=== PATIENT | male | born 1995 | race Caucasian/White ===

== ENCOUNTER 2017-08-08 19:05 | Emergency (ER) | payer OTHER ==
[~2017-08-08] VITALS: Ht 160 cm; Wt 37.7 kg
[2017-08-08 19:42] LABS: BASOPHILS # (AUTO) 0.04 K/uL (0.00-0.20); BASOPHILS % (AUTO) 0.5 % (0.0-2.0); EOSINOPHILS # (AUTO) 0.15 K/uL (0.00-0.70); EOSINOPHILS % (AUTO) 1.92 % (1.0-6.0); HEMATOCRIT 49.8 % (41-53); HEMOGLOBIN 16.5 g/dL (13.5-17.5); LYMPHOCYTES # (AUTO) 3.4 K/uL (1.0-4.8); LYMPHOCYTES % (AUTO) 44.3 % (22.0-44.0); MEAN CORPUSCULAR HEMOGLOBIN 30.8 pg (26.0-34.0); MEAN CORPUSCULAR HGB CONC 33.1 G/dL (31.0-37.0); MEAN CORPUSCULAR VOLUME 93 fL (80-100); MONOCYTES # (AUTO) 0.5 K/uL (0.1-1.0); MONOCYTES % (AUTO) 6.2 % (2.0-9.0); NEUTROPHILS # (AUTO) 3.6 K/uL (1.8-7.7); NEUTROPHILS % (AUTO) 47.1 % (40.0-70.0); PLATELET COUNT (AUTO) 248 K/uL (150-450); RED BLOOD CELL COUNT(AUTO) 5.35 MIL/uL (4.50-5.90); RED CELL DISTRIBUTION WIDTH 13.2 % (11.5-14.5); WHITE BLOOD COUNT (AUTO) 7.7 K/uL (4.5-11.0)
[2017-08-08 19:46] LABS: ANION GAP 9 mmol/L (8-16); CALCIUM, TOTAL 9.4 mg/dL (8.8-10.5); CARBON DIOXIDE 29 mmol/L (22-29); CHLORIDE 102 mmol/L (98-107); CREATININE 0.77 mg/dL (0.60-1.30); GLOMERULAR FILTR. RATE CALC > 60 mL/min (>60); SODIUM SERUM 140 mmol/L (136-145); UREA NITROGEN, BLOOD 11 mg/dL (7-18)
[2017-08-08 19:53] LABS: ALANINE AMINOTRANSFERASE 23 U/L (12-78); ALBUMIN 4.4 g/dL (3.4-5.0); ASPARTATE AMINOTRANSFERASE 16 U/L (15-37); BILIRUBIN,TOTAL 0.3 mg/dL (0.1-1.0); TOTAL PROTEIN, SERUM 7.4 g/dL (6.4-8.2)
[2017-08-08 22:20] VITALS: BP 121/70
== END 2017-08-08 22:34 | disposition home or self-care (01) ==
LOC: EMS 19:07
DX: F41.0 Panic disorder [episodic paroxysmal anxiety] (principal); F32.9 Major depressive disorder, single episode, unspecified
CPT/HCPCS: 99284

== ENCOUNTER 2017-08-09 09:02 | Inpatient (IN) | payer MEDICAID, OTHER ==
[~2017-08-09] VITALS: Ht 162.6 cm; Wt 35.4 kg
[2017-08-09 09:51] LABS: BASOPHILS # (AUTO) 0.04 K/uL (0.00-0.20); BASOPHILS % (AUTO) 0.7 % (0.0-2.0); EOSINOPHILS # (AUTO) 0.12 K/uL (0.00-0.70); EOSINOPHILS % (AUTO) 2.19 % (1.0-6.0); HEMATOCRIT 48.5 % (41-53); HEMOGLOBIN 16.6 g/dL (13.5-17.5); LYMPHOCYTES # (AUTO) 2.5 K/uL (1.0-4.8); LYMPHOCYTES % (AUTO) 47.9 % (22.0-44.0); MEAN CORPUSCULAR HEMOGLOBIN 31.2 pg (26.0-34.0); MEAN CORPUSCULAR HGB CONC 34.2 G/dL (31.0-37.0); MEAN CORPUSCULAR VOLUME 91 fL (80-100); MONOCYTES # (AUTO) 0.3 K/uL (0.1-1.0); MONOCYTES % (AUTO) 6.4 % (2.0-9.0); NEUTROPHILS # (AUTO) 2.3 K/uL (1.8-7.7); NEUTROPHILS % (AUTO) 42.8 % (40.0-70.0); PLATELET COUNT (AUTO) 241 K/uL (150-450); RED CELL DISTRIBUTION WIDTH 12.9 % (11.5-14.5); WHITE BLOOD COUNT (AUTO) 5.3 K/uL (4.5-11.0)
[2017-08-09 09:57] LABS: ANION GAP 8 mmol/L (8-16); CALCIUM, TOTAL 9.2 mg/dL (8.8-10.5); CARBON DIOXIDE 29 mmol/L (22-29); CHLORIDE 101 mmol/L (98-107); CREATININE 0.79 mg/dL (0.60-1.30); GLOMERULAR FILTR. RATE CALC > 60 mL/min (>60); SODIUM SERUM 138 mmol/L (136-145); UREA NITROGEN, BLOOD 12 mg/dL (7-18)
[2017-08-09 10:02] LABS: ALANINE AMINOTRANSFERASE 22 U/L (12-78); ALBUMIN 4.4 g/dL (3.4-5.0); ASPARTATE AMINOTRANSFERASE 18 U/L (15-37); BILIRUBIN,TOTAL 0.6 mg/dL (0.1-1.0); TOTAL PROTEIN, SERUM 7.6 g/dL (6.4-8.2)
[2017-08-09] MEDS ORDERED: ACETAMINOPHEN 325 MG TABLET PO ONE (12:00)
[2017-08-09] MEDS ORDERED: HALOPERIDOL 5 MG TABLET PO PRN (12:45)
[2017-08-09] MEDS ORDERED: LORazepam 2 MG TABLET PO PRN (12:45)
[2017-08-09] MEDS ORDERED: ZOLPIDEM TARTRATE 10 MG TABLET PO PRN (12:45)
[2017-08-09 14:00] VITALS: BP 117/62
[2017-08-09 16:00] VITALS: BP 124/86
[2017-08-09] MEDS ORDERED: MIRTAZAPINE 15 MG TABLET PO SCH (21:00)
[2017-08-10 07:28] VITALS: BP 103/66
[2017-08-10 07:35] LABS: CHOL/HDL RATIO 3.5 (4.2-7.3)
[2017-08-10 09:11] VITALS: BP 100/47
[2017-08-10 12:07] VITALS: BP 109/68
[2017-08-10 16:00] VITALS: BP 102/64
[2017-08-10] MEDS ORDERED: MIRTAZAPINE 15 MG TABLET PO SCH (21:00)
[2017-08-11 06:35] VITALS: BP 101/62
[2017-08-11 10:23] VITALS: BP 100/59
[2017-08-11 16:22] VITALS: BP 113/65
[2017-08-11] MEDS: MIRTAZAPINE 15 MG TABLET PO SCH ×2 (20:36→21:00)
[2017-08-12 07:16] VITALS: BP 105/62
[2017-08-12 08:58] VITALS: BP 121/78
[2017-08-12] MEDS ORDERED: MIRT15 PO (13:29)
== END 2017-08-12 14:15 | disposition home or self-care (01) | DRG 751 ==
LOC: EMS 09:05 → B2S 12:12
PROVIDERS: ADMIT Psychiatry & Neurology Psychiatry; ATTEND Psychiatry & Neurology Psychiatry
DX: F33.2 Major depressive disorder, recurrent severe without psychotic features (principal); I95.9 Hypotension, unspecified; R45.851 Suicidal ideations; F41.9 Anxiety disorder, unspecified
CPT/HCPCS: 99285; G0480

== ENCOUNTER 2023-06-26 12:19 | Emergency (ER) | payer MEDICAID, OTHER ==
[~2023-06-26] VITALS: Ht 157.5 cm; Wt 54.5 kg
[~2023-06-26 12:19] MED LIST: MIRT-89 PO
[2023-06-26 12:23] VITALS: BP 114/64; PULSE 110; RESP 18; TEMP 98.5
[2023-06-26] MEDS ORDERED: OLAN5TAB52 PO (12:23)
[2023-06-26 13:27] LABS: BASOPHILS % (AUTO) 0.9 % (0.0-2.0); EOSINOPHILS % (AUTO) 1.3 % (1.0-6.0); HEMATOCRIT 48.1 % (41-53); HEMOGLOBIN 16.6 g/dL (13.5-17.5); LYMPHOCYTES # (AUTO) 2.7 K/uL (1.0-4.8); LYMPHOCYTES % (AUTO) 43.1 % (22.0-44.0); MEAN CORPUSCULAR HEMOGLOBIN 32.5 pg (26.0-34.0); MEAN CORPUSCULAR HGB CONC 34.4 G/dL (31.0-37.0); MEAN CORPUSCULAR VOLUME 95 fL (80-100); MONOCYTES # (AUTO) 0.5 K/uL (0.1-1.0); MONOCYTES % (AUTO) 7.3 % (2.0-9.0); NEUTROPHILS # (AUTO) 2.9 K/uL (1.8-7.7); NEUTROPHILS % (AUTO) 47.4 % (40.0-70.0); PLATELET COUNT (AUTO) 204 K/uL (150-450); RED BLOOD CELL COUNT(AUTO) 5.09 MIL/uL (4.50-5.90); RED CELL DISTRIBUTION WIDTH 12.7 % (11.5-14.5); WHITE BLOOD COUNT (AUTO) 6.2 K/uL (4.5-11.0)
[2023-06-26] MEDS ORDERED: LORazepam 1 MG TABLET PO ONE (13:30)
[2023-06-26 13:36] LABS: ANION GAP 8 mmol/L (8-16); CALCIUM, TOTAL 9.2 mg/dL (8.8-10.5); CARBON DIOXIDE 29 mmol/L (22-29); CHLORIDE 103 mmol/L (98-107); CREATININE 0.93 mg/dL (0.60-1.30); GLOMERULAR FILTR. RATE CALC > 60 mL/min (>60); GLUCOSE,RANDOM 84 mg/dL (70-110); POTASSIUM 3.5 mmol/L (3.5-5.1); SODIUM SERUM 140 mmol/L (136-145); UREA NITROGEN, BLOOD 15 mg/dL (7-18)
[2023-06-26 13:46] LABS: ALANINE AMINOTRANSFERASE 48 U/L (12-78); ALBUMIN 4.4 g/dL (3.4-5.0); ALCOHOL, BLOOD (SERUM) < 3 mg/dL (0-10); ALKALINE PHOSPHATASE 77 U/L (46-116); ASPARTATE AMINOTRANSFERASE 26 U/L (15-37); BILIRUBIN,TOTAL 0.9 mg/dL (0.1-1.0); TOTAL PROTEIN, SERUM 7.4 g/dL (6.4-8.2)
== END 2023-06-26 16:22 | disposition home or self-care (01) ==
LOC: EMS 12:23
DX: F41.9 Anxiety disorder, unspecified (principal); F32.A Depression, unspecified
CPT/HCPCS: 99283; 80053; 85025; 36415; G0480

== ENCOUNTER 2023-07-05 22:43 | Emergency (ER) | payer OTHER ==
[~2023-07-05] VITALS: Ht 157.5 cm; Wt 36.4 kg
[~2023-07-05 22:43] MED LIST changes: -MIRT-89 PO; +OLAN5TAB52 PO
[2023-07-05 23:48] LABS: BASOPHILS % (AUTO) 0.7 % (0.0-2.0); EOSINOPHILS % (AUTO) 0.9 % (1.0-6.0); HEMATOCRIT 41.6 % (41-53); HEMOGLOBIN 14.4 g/dL (13.5-17.5); LYMPHOCYTES # (AUTO) 2.1 K/uL (1.0-4.8); LYMPHOCYTES % (AUTO) 28.7 % (22.0-44.0); MEAN CORPUSCULAR HEMOGLOBIN 32.6 pg (26.0-34.0); MEAN CORPUSCULAR HGB CONC 34.6 G/dL (31.0-37.0); MEAN CORPUSCULAR VOLUME 94 fL (80-100); MONOCYTES # (AUTO) 0.5 K/uL (0.1-1.0); MONOCYTES % (AUTO) 7.2 % (2.0-9.0); NEUTROPHILS # (AUTO) 4.7 K/uL (1.8-7.7); NEUTROPHILS % (AUTO) 62.5 % (40.0-70.0); PLATELET COUNT (AUTO) 214 K/uL (150-450); RED BLOOD CELL COUNT(AUTO) 4.43 MIL/uL (4.50-5.90); RED CELL DISTRIBUTION WIDTH 12.3 % (11.5-14.5); WHITE BLOOD COUNT (AUTO) 7.5 K/uL (4.5-11.0)
[2023-07-06 00:06] LABS: ANION GAP 6 mmol/L (8-16); CALCIUM, TOTAL 8.5 mg/dL (8.8-10.5); CARBON DIOXIDE 29 mmol/L (22-29); CHLORIDE 106 mmol/L (98-107); CREATININE 0.79 mg/dL (0.60-1.30); GLOMERULAR FILTR. RATE CALC > 60 mL/min (>60); GLUCOSE,RANDOM 107 mg/dL (70-110); POTASSIUM 3.6 mmol/L (3.5-5.1); SODIUM SERUM 140 mmol/L (136-145); UREA NITROGEN, BLOOD 13 mg/dL (7-18)
[2023-07-06 00:11] LABS: ALANINE AMINOTRANSFERASE 40 U/L (12-78); ALBUMIN 3.5 g/dL (3.4-5.0); ALKALINE PHOSPHATASE 91 U/L (46-116); ASPARTATE AMINOTRANSFERASE 24 U/L (15-37); BILIRUBIN,TOTAL 0.2 mg/dL (0.1-1.0); TOTAL PROTEIN, SERUM 6.3 g/dL (6.4-8.2)
[2023-07-06 00:14] LABS: ALCOHOL, BLOOD (SERUM) < 3 mg/dL (0-10)
[2023-07-06 00:49] VITALS: TEMP 98.1
[2023-07-06] MEDS ORDERED: LORazepam 2 MG TABLET PO ONE (02:00)
[2023-07-06] MEDS ORDERED: OLANZapine 5 MG TABLET PO ONE (02:00)
[2023-07-06] MEDS ORDERED: ACETAMINOPHEN 325 MG TABLET PO PRN (02:45)
[2023-07-06 05:46] VITALS: BP 90/50; PULSE 65; RESP 16
[2023-07-06 06:14] LABS: COVID AG,FIA SOURCE NASAL SWAB
[2023-07-06 06:43] LABS: SARS-COV2 (COVID) ANTIGEN,FIA Negative (Negative)
[2023-07-06] MEDS ORDERED: HYDR-4808 PO (10:08)
== END 2023-07-06 10:42 | disposition home or self-care (01) ==
LOC: EMS 22:43
DX: F32.9 Major depressive disorder, single episode, unspecified (principal); F32.A Depression, unspecified; Z20.822 Contact with and (suspected) exposure to COVID-19
CPT/HCPCS: 99284; 87426; 80053; 85025; G0480

== ENCOUNTER 2023-07-30 20:02 | Emergency (ER) | payer OTHER ==
[~2023-07-30] VITALS: Ht 160 cm; Wt 37.7 kg
[~2023-07-30 20:02] MED LIST changes: +HYDR-4808 PO
[2023-07-30 20:37] VITALS: TEMP 98.5
[2023-07-30 21:58] LABS: BASOPHILS % (AUTO) 0.6 % (0.0-2.0); EOSINOPHILS % (AUTO) 0.4 % (1.0-6.0); HEMATOCRIT 43.5 % (41-53); HEMOGLOBIN 15.3 g/dL (13.5-17.5); LYMPHOCYTES # (AUTO) 2.4 K/uL (1.0-4.8); LYMPHOCYTES % (AUTO) 32.9 % (22.0-44.0); MEAN CORPUSCULAR HEMOGLOBIN 32.9 pg (26.0-34.0); MEAN CORPUSCULAR HGB CONC 35.2 G/dL (31.0-37.0); MEAN CORPUSCULAR VOLUME 93 fL (80-100); MONOCYTES # (AUTO) 0.4 K/uL (0.1-1.0); MONOCYTES % (AUTO) 5.9 % (2.0-9.0); NEUTROPHILS # (AUTO) 4.5 K/uL (1.8-7.7); NEUTROPHILS % (AUTO) 60.2 % (40.0-70.0); PLATELET COUNT (AUTO) 215 K/uL (150-450); RED BLOOD CELL COUNT(AUTO) 4.66 MIL/uL (4.50-5.90); RED CELL DISTRIBUTION WIDTH 12.6 % (11.5-14.5); WHITE BLOOD COUNT (AUTO) 7.4 K/uL (4.5-11.0)
[2023-07-30 22:06] LABS: ANION GAP 11 mmol/L (8-16); CALCIUM, TOTAL 9.2 mg/dL (8.8-10.5); CARBON DIOXIDE 25 mmol/L (22-29); CHLORIDE 103 mmol/L (98-107); CREATININE 0.77 mg/dL (0.60-1.30); GLOMERULAR FILTR. RATE CALC > 60 mL/min (>60); GLUCOSE,RANDOM 104 mg/dL (70-110); POTASSIUM 3.7 mmol/L (3.5-5.1); SODIUM SERUM 139 mmol/L (136-145); UREA NITROGEN, BLOOD 11 mg/dL (7-18)
[2023-07-30 22:12] LABS: ALANINE AMINOTRANSFERASE 61 U/L (12-78); ALBUMIN 4.3 g/dL (3.4-5.0); ALKALINE PHOSPHATASE 82 U/L (46-116); ASPARTATE AMINOTRANSFERASE 24 U/L (15-37); BILIRUBIN,TOTAL 0.5 mg/dL (0.1-1.0); TOTAL PROTEIN, SERUM 7.3 g/dL (6.4-8.2)
[2023-07-30 22:23] LABS: ALCOHOL, BLOOD (SERUM) < 3 mg/dL (0-10)
[2023-07-30 22:36] LABS: PH,URINE DRUG SCREEN 6.5 (5.0-8.0)
[2023-07-30 22:42] LABS: ALCOHOL, URINE DRUG SCREEN NEGATIVE (NEGATIVE); AMPHET/METH SCREEN,URINE NEGATIVE (NEGATIVE); BARBITURATE SCREEN, URINE NEGATIVE (NEGATIVE); BENZODIAZEPINES SCREEN,URINE NEGATIVE (NEGATIVE); CANNABINOID SCREEN,URINE NEGATIVE (NEGATIVE); COCAINE SCREEN,URINE NEGATIVE (NEGATIVE); METHADONE SCREEN, URINE NEGATIVE (NEGATIVE); OPIATE SCREEN,URINE NEGATIVE (NEGATIVE); PHENCYCLIDINE SCREEN,URINE NEGATIVE (NEGATIVE)
[2023-07-30] MEDS ORDERED: LORazepam 1 MG TABLET PO ONE (23:00)
[2023-07-30 23:14] VITALS: BP 122/83; PULSE 94; RESP 16
== END 2023-07-30 23:16 | disposition home or self-care (01) ==
LOC: EMS 20:02
DX: F41.9 Anxiety disorder, unspecified (principal); F32.A Depression, unspecified
CPT/HCPCS: 99283; 80053; 85025; 80307; G0480

== ENCOUNTER 2023-12-28 23:23 | Emergency (ER) | payer OTHER ==
[~2023-12-28] VITALS: Ht 160 cm; Wt 40.9 kg
[2023-12-29] MEDS: LORazepam 2 MG/ML VIAL IM ONE (01:00)
[2023-12-29] MEDS: OLANZapine 10 MG TABLET PO ONE (01:00)
[2023-12-29] MEDS ORDERED: LORA-1000 PO (01:26)
[2023-12-29] MEDS ORDERED: OLAN10TA22 PO (01:27)
[2023-12-29 01:30] VITALS: BP 124/66; PULSE 86; RESP 16; TEMP 97.3
== END 2023-12-29 02:13 | disposition home or self-care (01) ==
LOC: EMS 23:25
DX: F41.9 Anxiety disorder, unspecified (principal); F32.9 Major depressive disorder, single episode, unspecified; G47.00 Insomnia, unspecified
CPT/HCPCS: 99283; 96372; J2060

== ENCOUNTER 2024-02-01 19:19 | Inpatient (IN) | payer MEDICAID, OTHER ==
[~2024-02-01] VITALS: Ht 160 cm; Wt 40.4 kg
[~2024-02-01 19:19] MED LIST changes: +LORA-1000 PO; +OLAN10TA22 PO
[2024-02-01 21:08] LABS: BASOPHILS % (AUTO) 0.1 % (0.0-2.0); EOSINOPHILS % (AUTO) 0 % (1.0-6.0); HEMATOCRIT 46.7 % (41-53); HEMOGLOBIN 15.7 g/dL (13.5-17.5); LYMPHOCYTES # (AUTO) 1.5 K/uL (1.0-4.8); LYMPHOCYTES % (AUTO) 12.3 % (22.0-44.0); MEAN CORPUSCULAR HEMOGLOBIN 31.6 pg (26.0-34.0); MEAN CORPUSCULAR HGB CONC 33.6 G/dL (31.0-37.0); MEAN CORPUSCULAR VOLUME 94 fL (80-100); MONOCYTES # (AUTO) 0.6 K/uL (0.1-1.0); MONOCYTES % (AUTO) 4.7 % (2.0-9.0); NEUTROPHILS # (AUTO) 10.2 K/uL (1.8-7.7); NEUTROPHILS % (AUTO) 82.9 % (40.0-70.0); PLATELET COUNT (AUTO) 251 K/uL (150-450); RED BLOOD CELL COUNT(AUTO) 4.96 MIL/uL (4.50-5.90); RED CELL DISTRIBUTION WIDTH 12.7 % (11.5-14.5); WHITE BLOOD COUNT (AUTO) 12.3 K/uL (4.5-11.0)
[2024-02-01 21:12] LABS: ALCOHOL, URINE DRUG SCREEN NEGATIVE (NEGATIVE); AMPHET/METH SCREEN,URINE NEGATIVE (NEGATIVE); BARBITURATE SCREEN, URINE NEGATIVE (NEGATIVE); BENZODIAZEPINES SCREEN,URINE NEGATIVE (NEGATIVE); CANNABINOID SCREEN,URINE NEGATIVE (NEGATIVE); COCAINE SCREEN,URINE NEGATIVE (NEGATIVE); METHADONE SCREEN, URINE NEGATIVE (NEGATIVE); OPIATE SCREEN,URINE NEGATIVE (NEGATIVE); PHENCYCLIDINE SCREEN,URINE NEGATIVE (NEGATIVE)
[2024-02-01 21:16] LABS: ANION GAP 16 mmol/L (8-16); CALCIUM, TOTAL 9.6 mg/dL (8.8-10.5); CARBON DIOXIDE 24 mmol/L (22-29); CHLORIDE 102 mmol/L (98-107); CREATININE 0.87 mg/dL (0.60-1.30); GLOMERULAR FILTR. RATE CALC > 60 mL/min (>60); GLUCOSE,RANDOM 101 mg/dL (70-110); POTASSIUM 3.6 mmol/L (3.5-5.1); SODIUM SERUM 142 mmol/L (136-145); UREA NITROGEN, BLOOD 13 mg/dL (7-18)
[2024-02-01 21:20] LABS: PH,URINE DRUG SCREEN 5.5 (5.0-8.0)
[2024-02-01 21:22] LABS: ALANINE AMINOTRANSFERASE 24 U/L (12-78); ALBUMIN 4.7 g/dL (3.4-5.0); ALKALINE PHOSPHATASE 96 U/L (46-116); ASPARTATE AMINOTRANSFERASE 17 U/L (15-37); BILIRUBIN,TOTAL 0.5 mg/dL (0.1-1.0); TOTAL PROTEIN, SERUM 7.9 g/dL (6.4-8.2)
[2024-02-01 21:27] LABS: ALCOHOL, BLOOD (SERUM) < 3 mg/dL (0-10)
[2024-02-01] MEDS: SODIUM CHLORIDE 0.9% 1,000 ML IV ONE (22:21)
[2024-02-01] MEDS: LORazepam 2 MG/ML VIAL IVP ONE (22:23)
[2024-02-02 03:31] LABS: COVID AG,FIA SOURCE NPH
[2024-02-02 03:50] LABS: SARS-COV2 (COVID) ANTIGEN,FIA Negative (Negative)
[2024-02-02] MEDS ORDERED: HALOPERIDOL 5 MG TABLET PO PRN (09:45)
[2024-02-02] MEDS ORDERED: ZOLPIDEM TARTRATE 10 MG TABLET PO PRN (09:45)
[2024-02-02 11:40] VITALS: BP 116/79; PULSE 113; RESP 18; TEMP 98.5; O2SAT 95
[2024-02-02] MEDS ORDERED: HydrOXYzine PAMOATE 25 MG CAPSULE PO PRN (18:15)
[2024-02-02] MEDS: LORazepam 2 MG TABLET PO PRN (19:17)
[2024-02-02] MEDS ORDERED: OLANZapine 10 MG TABLET PO SCH (21:00)
[2024-02-02] MEDS: OLANZapine 10 MG RAPDIS TABLET PO SCH (21:19)
[2024-02-02 21:55] VITALS: RESP 18
[2024-02-03] MEDS ORDERED: GuaiFENesin/D-METHORPHAN [SUGAR-FREE] 200-20MG/10 ML SYRUP UDCUP PO PRN (07:15)
[2024-02-03] MEDS ORDERED: NICOTINE 14 MG/24 HOUR PATCH TD PRN (07:15)
[2024-02-03] MEDS ORDERED: ALBUTEROL SULFATE HFA 90 MCG/PUFF 8 GM INHALER IH PRN (07:15)
[2024-02-03] MEDS ORDERED: DOCUSATE SODIUM 100 MG CAPSULE PO PRN (07:15)
[2024-02-03] MEDS ORDERED: IBUPROFEN 400 MG TABLET PO PRN (07:15)
[2024-02-03] MEDS ORDERED: ACETAMINOPHEN 325 MG TABLET PO PRN (07:15)
[2024-02-03] MEDS ORDERED: CloNIDine HCL 0.1 MG TABLET PO PRN (07:15)
[2024-02-03] MEDS ORDERED: MAG HYDROX/ALUMINUM HYD/SIMETH ES 30 ML SUSPENSION UDCUP PO PRN (07:15)
[2024-02-03] MEDS ORDERED: MAGNESIUM HYDROXIDE SUSPENSION 30 ML UDCUP PO PRN (07:15)
[2024-02-03] MEDS ORDERED: LOPERAMIDE HCL 2 MG CAPSULE PO PRN (07:15)
[2024-02-03] MEDS ORDERED: PETROLATUM,WHITE 28 GM JELLY TP PRN (07:15)
[2024-02-03] MEDS ORDERED: ONDANSETRON HCL 4 MG TABLET PO PRN (07:15)
[2024-02-03 07:32] LABS: BASOPHILS % (AUTO) 0.1 % (0.0-2.0); EOSINOPHILS % (AUTO) 0 % (1.0-6.0); HEMATOCRIT 43.4 % (41-53); HEMOGLOBIN 14.9 g/dL (13.5-17.5); LYMPHOCYTES # (AUTO) 2.9 K/uL (1.0-4.8); LYMPHOCYTES % (AUTO) 40.5 % (22.0-44.0); MEAN CORPUSCULAR HEMOGLOBIN 31.9 pg (26.0-34.0); MEAN CORPUSCULAR HGB CONC 34.3 G/dL (31.0-37.0); MEAN CORPUSCULAR VOLUME 93 fL (80-100); MONOCYTES # (AUTO) 0.6 K/uL (0.1-1.0); NEUTROPHILS # (AUTO) 3.7 K/uL (1.8-7.7); NEUTROPHILS % (AUTO) 51.4 % (40.0-70.0); PLATELET COUNT (AUTO) 236 K/uL (150-450); RED BLOOD CELL COUNT(AUTO) 4.67 MIL/uL (4.50-5.90); RED CELL DISTRIBUTION WIDTH 12.4 % (11.5-14.5); WHITE BLOOD COUNT (AUTO) 7.2 K/uL (4.5-11.0)
[2024-02-03] MEDS: OLANZapine 5 MG TABLET PO SCH (08:48)
[2024-02-03 09:34] VITALS: BP 114/74; PULSE 99; RESP 16; TEMP 98.2; O2SAT 97
[2024-02-03 21:55] VITALS: BP 102/57; PULSE 88; RESP 18; TEMP 97.6; O2SAT 99
[2024-02-04 07:28] LABS: HEMOGLOBIN A1C 5.4 % (3.8-5.6)
[2024-02-04 07:35] LABS: MAGNESIUM 2.4 mg/dL (1.80-2.40); PHOSPHORUS 3.8 mg/dL (2.5-4.9); THYROID STIMULATING HORMONE 0.99 uIU/mL (0.36-3.74)
[2024-02-04 08:32] LABS: CHOL/HDL RATIO 3.4 (4.2-7.3)
[2024-02-04] MEDS: MULTIVITAMINS, THERAPEUTIC TABLET PO SCH (08:57)
[2024-02-04] MEDS: THIAMINE 100 MG TABLET PO SCH (08:57)
[2024-02-04 10:36] VITALS: BP 123/88; PULSE 100; RESP 18; TEMP 96.6; O2SAT 97
[2024-02-04] MEDS ORDERED: OLAN10TA74 PO (12:00)
[2024-02-04] MEDS ORDERED: MULT-1203 PO (12:09)
[2024-02-04] MEDS ORDERED: THIA100T80 PO (12:09)
[2024-02-04] MEDS ORDERED: OLAN10TA26 PO ×2 (12:54→15:17)
[2024-02-04] MEDS ORDERED: OLAN5TAB52 PO (15:17)
== END 2024-02-04 17:32 | disposition home or self-care (01) | DRG 750 ==
LOC: EMS 19:22 → 3EI 02-02 10:13
PROVIDERS: ADMIT Psychiatry & Neurology Child & Adolescent Psychiatry; ATTEND Psychiatry & Neurology Child & Adolescent Psychiatry
DX: F25.1 Schizoaffective disorder, depressive type (principal); R45.851 Suicidal ideations; F32.A Depression, unspecified; F41.9 Anxiety disorder, unspecified; Z20.822 Contact with and (suspected) exposure to COVID-19
CPT/HCPCS: 80053; 80061; 80307; 83036; 83735; 84100; 84443; 85025; 93005; 99285; G0480; J2060

== ENCOUNTER 2024-10-29 13:18 | Emergency (ER) | payer MEDICAID, OTHER ==
[~2024-10-29] VITALS: Ht 160 cm; Wt 43.6 kg
[~2024-10-29 13:18] MED LIST changes: -HYDR-4808 PO; -LORA-1000 PO; +MULT-1203 PO; -OLAN10TA22 PO; +OLAN10TA26 PO; +THIA100T80 PO
[2024-10-29 13:36] VITALS: TEMP 98.4
[2024-10-29] MEDS ORDERED: LORA1TAB25 PO (13:40)
[2024-10-29] MEDS ORDERED: FLUO-418 PO (13:40)
[2024-10-29 14:31] LABS: BASOPHILS % (AUTO) 0.3 % (0.0-2.0); EOSINOPHILS % (AUTO) 0 % (1.0-6.0); HEMATOCRIT 46.2 % (41-53); HEMOGLOBIN 15.8 g/dL (13.5-17.5); LYMPHOCYTES # (AUTO) 1.6 K/uL (1.0-4.8); LYMPHOCYTES % (AUTO) 25.7 % (22.0-44.0); MEAN CORPUSCULAR HEMOGLOBIN 31.7 pg (26.0-34.0); MEAN CORPUSCULAR HGB CONC 34.2 G/dL (31.0-37.0); MEAN CORPUSCULAR VOLUME 93 fL (80-100); MONOCYTES # (AUTO) 0.4 K/uL (0.1-1.0); MONOCYTES % (AUTO) 6.3 % (2.0-9.0); NEUTROPHILS # (AUTO) 4.2 K/uL (1.8-7.7); NEUTROPHILS % (AUTO) 67.7 % (40.0-70.0); PLATELET COUNT (AUTO) 245 K/uL (150-450); RED BLOOD CELL COUNT(AUTO) 4.97 MIL/uL (4.50-5.90); RED CELL DISTRIBUTION WIDTH 13.2 % (11.5-14.5); WHITE BLOOD COUNT (AUTO) 6.3 K/uL (4.5-11.0)
[2024-10-29 14:41] LABS: ANION GAP 4 mmol/L (8-16); CALCIUM, TOTAL 9.5 mg/dL (8.8-10.5); CARBON DIOXIDE 32 mmol/L (22-29); CHLORIDE 105 mmol/L (98-107); CREATININE 0.78 mg/dL (0.60-1.30); GLOMERULAR FILTR. RATE CALC > 60 mL/min (>60); GLUCOSE,RANDOM 103 mg/dL (70-110); POTASSIUM 3.9 mmol/L (3.5-5.1); SODIUM SERUM 140 mmol/L (136-145); UREA NITROGEN, BLOOD 13 mg/dL (7-18)
[2024-10-29] MEDS: LORazepam 1 MG TABLET PO ONE (14:50)
[2024-10-29 14:55] LABS: ALCOHOL, BLOOD (SERUM) < 3 mg/dL (0-10)
[2024-10-29 15:15] VITALS: BP 114/65; PULSE 99; RESP 20; O2SAT 100
== END 2024-10-29 15:19 | disposition home or self-care (01) ==
LOC: EMS 13:18
DX: F41.9 Anxiety disorder, unspecified (principal); F32.A Depression, unspecified; Z79.899 Other long term (current) drug therapy
CPT/HCPCS: 99283; 80048; 85025; 36415; G0480